=== PATIENT | male | born 1960 | race Caucasian/White ===

== ENCOUNTER 2021-09-03 09:20 | Outpatient (REF) | payer OTHER, SELFPAY ==
--- NOTE | ~2021-09-03 | CT_ITS ---
EXAMINATION: CT CHEST ANGIOGRAPHY WITH IV CONTRAST FOR AORTA CT ABDOMEN AND PELVIS WITH IV CONTRAST CLINICAL INFORMATION: Aortic aneurysm. COMPARISON: None TECHNIQUE: Multidetector CT imaging examination of the chest, abdomen and pelvis was performed with intravenous administration of 70 mL Omnipaque 300. Axial images are displayed at 0.6 mm and 5 mm slice thickness. The chest images are obtained in the arterial phase for aorta evaluation. Coronal and sagittal reformatted images were generated at the technologist's workstation and submitted for review. This CT examination was performed using dose optimization techniques as appropriate, variously including the following: *Automated exposure control *Adjustment of mA and/or kV according to patient size (this includes techniques or standardized protocols for targeted exams where dose is matched to indication/reason for exam; i.e. extremities or head) *Use of iterative reconstruction technique DLP: 539 mGy-cm FINDINGS: CHEST - LUNGS AND PLEURA: Trachea and central airways are widely patent and normal in caliber. No acute pulmonary disease. No edema, consolidation or pleural effusion. No pneumothorax. Small, 0.3 cm solid noncalcified nodule is present in the lingula (image 267, series 6). Based on Fleischner Society guidelines, chest CT follow-up is not recommended in a low-risk patient and is considered optional at 12 months in a high risk patient. CARDIOVASCULAR: The heart size is normal. Mild calcific atherosclerosis of coronary arteries. No pericardial effusion. The aortic valve is replaced and ascending aorta repaired. Surgical clips noted adjacent to the ascending aorta. The thickened hypoattenuation along the wall of the ascending aorta is of uncertain chronicity. This has fluid attenuation. There is no inflammatory change in the surrounding mediastinal fat. This is presumably chronic postoperative change. The aortic root is 3.5 cm. At the level of the right pulmonary artery, the repaired ascending aorta is approximately 3 cm transverse and and 3.4 cm AP. The aortic arch measures up to 3.2 cm. The descending thoracic aorta is tortuous. The proximal descending aorta is mildly dilated up to 3.5 cm AP, 3.4 cm transverse. The distal descending aorta measures up to 3.1 cm AP, 3 cm transverse. The great vessels arising from the top of the aortic arch are patent. Aortic dissection flap is present. The patient has a history of type A aortic dissection. This dissection begins at the level of origin of the innominate artery, and the dissection flap travels into the proximal right common carotid artery. No vessel stenosis or occlusion. The left common carotid and left subclavian arteries are patent. There is mild wall thickening of the origin of the left common carotid artery. There is a history of reimplantation/repair of the left common carotid artery. A dissection flap is present within the left subclavian artery without compromised vascular flow. The dissection of the thoracic aorta continues along the descending aorta and into the abdominal aorta. MEDIASTINUM/LOWER NECK: No mediastinal mass. The esophagus and thyroid gland are unremarkable. LYMPHATICS: No pathologic sized axillary, hilar or mediastinal lymph nodes. CHEST WALL/BONES: Multilevel degenerative arthropathy of the visualized lower cervical and thoracic spine. No aggressive osseous lesions. There is partial osseous union of the sternotomy. ABDOMEN AND PELVIS - HEPATOBILIARY: Liver has normal size, contour and attenuation. Gallbladder is unremarkable. No intrahepatic or extrahepatic bile duct dilatation. PANCREAS: No edema, mass or pancreatic ductal dilatation. SPLEEN: Normal. ADRENAL GLANDS: Normal. KIDNEYS AND URETERS: Kidneys are normal in size and enhance symmetrically. No nephrolithiasis or hydronephrosis. BOWEL AND PERITONEUM: No dilated loops of bowel. The appendix is normal. No ascites or pneumoperitoneum. Multiple diverticula of the colon. The sigmoid colon is underdistended. There is likely chronic wall thickening/diverticular disease of the sigmoid colon. Recommend correlation with any prior outside imaging exams. There is no overt acute inflammation of the colon. No abscess. ABDOMINAL WALL: No acute abnormalities in the abdominal wall. VESSELS: There is atherosclerotic calcification of the abdominal aorta. There is a chronic dissection of the abdominal aorta. At the level of the renal arteries, abdominal aorta measures 3.1 cm transverse, 2.8 cm AP and further distally it is 2.7 cm transverse, 2.7 cm AP. A chronic dissection flap in the lumen of the abdominal aorta does not interfere with flow through the aorta or into its branches. The dissection flap extends to the origin of the celiac trunk and into the SMA, and the aortic dissection continues to the common iliac bifurcation. A simple appearing fluid collection that projects anterior to the right common femoral vessels measures 9.2 cm transverse diameter and bulges into the skin. This is likely sequela of prior surgery at the right groin. Multiple surgical clips noted anterior to femoral vessels at the left groin. LYMPH NODES: No pathologic sized lymph nodes in the abdomen or pelvis. No inguinal lymphadenopathy. BLADDER AND PELVIC VISCERA: Urinary bladder is grossly normal. Prostate gland is unremarkable. MUSCULOSKELETAL: Multilevel osteophyte formation of the lumbar spine. There is degenerative endplate sclerosis at the L3 inferior endplate and minimal retrolisthesis at L3-L4. Mild osteoarthritis of the hips. No suspicious osseous lesions. CT/CT abdomen pelvis w con IMPRESSION: * In this patient with history of known type A aortic dissection and prior repair of a prior mycotic aneurysm, there are multiple abnormalities. Currently, no comparison imaging exams are available. The hypoattenuation along the wall of the repaired ascending aorta is of uncertain chronicity in the absence of comparison exams. There is no inflammatory change in the surrounding mediastinal fat. This is presumably chronic postoperative change. The dissection flap is currently seen beginning at the level of right innominate origin and continuing along the descending and abdominal aorta to the iliac bifurcation, as noted above. * Colonic diverticulosis. There is likely chronic diverticular disease of the thick-walled sigmoid colon. Query if patient has any symptoms from chronic diverticular disease. There is no bowel obstruction, perisigmoid abscess or pelvic free fluid. * There is a simple appearing fluid collection projecting anterior to the right common femoral vessels at the groin, and there are multiple surgical clips in the left groin. The critical test result was discussed with Dr. Davis at 11:33 AM on 09/03/2021 and it was ascertained that the content and the importance of the findings was understood at the time of the direct communication.
[2021-09-03] MEDS: iohexoL 350 MG/ML 100 ML INFUS..BTL IV (11:02)
== END 2021-09-03 09:21 | disposition home or self-care (01) ==
LOC: HO.CT 09:20
PROVIDERS: PCP Internal Medicine; Visit Provider Nurse Practitioner Family
DX: I71.2 Thoracic aortic aneurysm, without rupture (principal)
CPT/HCPCS: 71275; 74177; Q9967